=== PATIENT | male | born 1990 | race Caucasian/White ===

== ENCOUNTER 2022-07-27 21:28 | Emergency (ER) | payer MEDICAID, OTHER ==
[~2022-07-27] VITALS: Ht 175.3 cm; Wt 112.0 kg
[2022-07-28] MEDS ORDERED: IOHEXOL 350 MG/ML 100ML IJ ONE (00:11)
[2022-07-28 00:57] LABS: Basophils # (auto) 0 10 ^3/uL (0-0.2); Basophils % (auto) 0.1 % (0.0-2.0); Eosinophils # (auto) 0 10 ^3/uL (0-0.8); Eosinophils % (auto) 0.1 % (0.0-7.0); Hematocrit 41.9 % (41.0-53.0); Hemoglobin 14.1 g/dL (13.5-17.5); Lymphocytes # (auto) 1.3 10 ^3/uL (0.4-5.4); Lymphocytes % (auto) 8.9 % (10.0-50.0); Mean Corpuscular Hemoglobin 28.4 pg (28.0-32.0); Mean Corpuscular Hgb Conc. 33.6 g/dL (32.0-36.0); Mean Corpuscular Volume 84.7 fL (80.0-100.0); Monocytes # (auto) 0.8 10 ^3/uL (0-1.3); Monocytes % (auto) 5.5 % (0.0-12.0); Neutrophils # (auto) 12.8 10 ^3/uL (1.6-8.6); Neutrophils % (auto) 85.4 % (37.0-80.0); Red Blood Cells 4.94 10^6/uL (4.5-5.90); Red Cell Distribution Width 13.8 % (11.8-14.3)
[2022-07-28 01:11] LABS: Albumin 3.7 g/dL (3.4-5.0); BUN/Creatinine Ratio 13.8; Calcium 9.5 mg/dL (8.5-10.1); Magnesium 2.1 mg/dL (1.6-2.6); Potassium 4.1 mmol/L (3.5-5.1)
[2022-07-28 01:13] LABS: Lactic Acid w/Reflex 2.7 mmol/L (0.4-2.0)
[2022-07-28 01:22] LABS: Bilirubin, Total 0.4 mg/dL (0.2-1.0); Total Protein 7.6 g/dL (6.4-8.2)
[2022-07-28] MEDS ORDERED: HYDROcodone-ACET 5/325MG TAB PO ONE (03:00)
[2022-07-28] MEDS ORDERED: ONDANSETRON ODT 4 MG TAB PO ONE (03:00)
[2022-07-28 11:10] VITALS: BP 128/68
== END 2022-07-28 11:21 | disposition home or self-care (01) ==
LOC: ER 21:28
DX: R10.12 Left upper quadrant pain (principal); R11.2 Nausea with vomiting, unspecified; D72.829 Elevated white blood cell count, unspecified; K76.0 Fatty (change of) liver, not elsewhere classified
CPT/HCPCS: 36415; 71046; 74177; 80053; 83605; 83690; 83735; 84484; 85025; 99285; Q0162; Q9967